=== PATIENT | male | born 1955 | race American Indian/Alaskan Native ===

== ENCOUNTER 2018-07-31 11:25 | Emergency (ER) | payer MEDICAID, OTHER ==
--- NOTE | 2018-07-31 13:21 | XRay Report ---
LEFT SHOULDER: Pain. Routine views demonstrate normal bony and soft tissue structures with normal joint alignment of the shoulder. IMPRESSION: Normal study. RIGHT KNEE: Pain The bony architecture is intact without evidence of fracture or dislocation. No significant soft tissue abnormality is seen. IMPRESSION: Normal right knee.
--- NOTE | 2018-07-31 14:30 | Emergency Department Report ---
<YENNY STOVER - Last Filed: 07/31/18 20:17> ED Fall HPI - General Chief Complaint: Fall Stated Complaint: (R) KNEE/(L) ARM PAIN Time Seen by Provider: 07/31/18 14:18 - Related Data Previous Rx's Medication Instructions Recorded Last Taken Type traMADol [Ultram 50 MG tab] 50 mg PO Q8H PRN #12 tablet 07/31/18 Unknown Rx Allergies Allergy/AdvReac Type Severity Reaction Status Date / Time No Known Allergies Allergy Verified 07/31/18 11:43 ED Past Medical Hx - Medications Home Medications: Home Medications Medication Instructions Recorded Confirmed Last Taken Type traMADol [Ultram 50 MG tab] 50 mg PO Q8H PRN #12 tablet 07/31/18 Unknown Rx ED Medical Decision Making - Medical Decision Making Reevaluation of vitals blood pressure 141/83. Blood pressure trending down after treatment. Patient is stable and will be discharged home. He will continue current medication and follow up with primary care provider. ED Disposition Clinical Impression: Elevated systolic blood pressure reading with diagnosis of hypertension, Arthralgia of multiple sites, Non compliance w medication regimen Fall from ladder Qualifiers: Encounter type: initial encounter Qualified Code(s): W11.XXXA - Fall on and from ladder, initial encounter Disposition: DC-01 TO HOME OR SELFCARE Is pt being admited?: No Condition: Stable Instructions: Fall Prevention for Older Adults (ED), Hypertension (ED), Arthralgia (ED), Knee Exercises (GEN), RICE Therapy (ED) Additional Instructions: Please take medication as prescribed. Please do not drive or operate heavy machinery or take an Ultram as this medication can cause drowsiness. Please remember to take your blood pressure medications to include your amlodipine and water pill when you go home. These follow-up at [facility] or [facility] [place] for primary care physician management of chronic hypertension. Keep a log of your blood pressure after you make appointment and take your blood pressure daily and record to bring to primary care visit with you. Chronic high blood pressure can lead to stroke, heart attack, kidney failure on dialysis and kidney lead to . With this in mind it is very important that you take your blood pressure medication that he said you have on urine night stand at home. If you continue to have knee pain and shoulder pain, please follow up with orthopedic doctor Prescriptions: traMADol [Ultram 50 MG tab] 50 mg PO Q8H PRN #12 tablet PRN Reason: Pain Referrals: PRIMARY CARE, [Primary Care Provider] - 08/03/18 [facility] [Outside] - 08/03/18 [facility] [Outside] - 08/03/18 JHONATAN KRAMER MD [Staff Physician] - 08/03/18 Forms: Work/School Release Form(ED) Time of Disposition: 20:19 <SHARYN PICKERING A - Last Filed: 08/02/18 11:41> ED Fall HPI - General Source: patient, family Mode of arrival: Wheelchair - History of Present Illness Initial Comments: This 62-year-old male here report that he was working on his two-story house and he fell off the ladder approximately 7.6 feet. He said that the ladder was 4 feet tall and he is 5 feet 6 inches. So that would make it 9.6. He reports pain rated a 10 to left shoulder and right knee. Denies any head injury, headache or loss of consciousness. He said when he fell he landed on his right knee and use his left shoulder to brace himself. Denies falling on his buttocks and landed on his feet. No medication taken prior to coming to the emergency room. Patient also with elevated blood pressure and denies any symptoms. Blood pressure is 172/108 and he said he usually takes Norvasc and water pill but he has not taken it for a while. Pain is worse with movement and better with rest. He states that his blood pressure is always elevated daily MD Complaint: fall -: This morning Fall From: from height (distance) (9.6 feet off ladder) When Fall Occurred: 1-3 hours [employer] Fall Witnessed: yes, by bystander Place Fall Occurred: other (outdoors) Loss of Consciousness: none Prolonged Down Time?: no Symptoms Prior to Fall: none Location - Extremities: Left: Shoulder (left shoulder), Right: Knee (right knee in) Severity: severe Severity scale (0 -10): 8 Quality: aching Context: tripped/slipped Associated Symptoms: denies: headache, neck pain, numbness, weakness, chest paint, shortness of breath, abdominal pain, hematuria, unable to walk, lightheaded, vertigo, confusion ED Review of Systems ROS: Stated complaint: (R) KNEE/(L) ARM PAIN Other details as noted in HPI Constitutional: denies: chills, fever Eyes: denies: eye discharge ENT: denies: throat pain, congestion Respiratory: denies: cough, shortness of breath, wheezing Cardiovascular: denies: chest pain, palpitations, dyspnea on exertion, edema, syncope, paroxysmal nocturnal dyspnea Gastrointestinal: denies: abdominal pain, nausea, vomiting, hematemesis, hematochezia Musculoskeletal: arthralgia. denies: back pain, joint swelling, myalgia Skin: denies: rash Neurological: denies: headache, numbness, paresthesias, confusion, abnormal gait, vertigo ED Past Medical Hx - Past Medical History Previous Medical History?: Yes Hx Hypertension: Yes - Surgical History Past Surgical History?: No - Family History Family history: hypertension - Social History Smoking Status: Current Every Day Smoker Substance Use Type: Alcohol ED Physical Exam - General Limitations: No Limitations General appearance: alert, in no apparent distress - Head Head exam: Present: atraumatic, normocephalic, normal inspection, other (normal exam) - Eye Eye exam: Present: normal appearance, PERRL, EOMI. Absent: nystagmus, periorbital swelling, periorbital tenderness Pupils: Present: normal accommodation - ENT ENT exam: Present: normal exam, normal orophraynx, mucous membranes moist, TM's normal bilaterally, normal external ear exam - Neck Neck exam: Present: normal inspection, full ROM, other (no C-spine tenderness). Absent: tenderness, lymphadenopathy - Expanded Neck Exam Expanded Neck exam: Absent: tenderness, midline deformity, anterior neck swelling, tracheal deviation - Respiratory Respiratory exam: Present: normal lung sounds bilaterally. Absent: respiratory distress, chest wall tenderness - Cardiovascular Cardiovascular Exam: Present: regular rate, normal rhythm, normal heart sounds. Absent: systolic murmur, diastolic murmur - GI/Abdominal GI/Abdominal exam: Present: soft. Absent: distended, tenderness, guarding, rebound, rigid, normal bowel sounds, organomegaly, mass, bruit, pulsatile mass, hernia - Extremities Exam Extremities exam: Present: normal inspection, full ROM (full range of motion to all extremities but patient reports pain to left shoulder and right knee with), tenderness (left shoulder and right knee), normal capillary refill, other (No cce. + 2 pulses in all extremities, no neurovascular compromise except right knee and left shoulder with tenderness to palpate. No joint effusion, crepitus, swelling, abrasion or laceration. No bruising noted. No bony deformity. Patient able to flex and extend his right knee with minimal pain.). Absent: pedal edema, joint swelling, calf tenderness - Back Exam Back exam: Present: normal inspection, full ROM, other (ambulates without any difficulties). Absent: tenderness, CVA tenderness (R), CVA tenderness (L), muscle spasm, paraspinal tenderness, vertebral tenderness, rash noted - Neurological Exam Neurological exam: Present: alert, normal gait, reflexes normal, other (no focal neurological deficit). Absent: motor sensory deficit - Psychiatric Psychiatric exam: Present: normal affect, normal mood - Skin Skin exam: Present: warm, dry, intact, normal color. Absent: rash ED Course Vital Signs 07/31/18 07/31/18 07/31/18 11:30 17:55 19:27 Temperature 98 F Pulse Rate 93 H 87 94 H Respiratory 18 18 Rate Blood Pressure 172/108 201/127 Blood Pressure 205/135 [Left] O2 Sat by Pulse 100 Oximetry 07/31/18 20:11 Temperature Pulse Rate 88 Respiratory 16 Rate Blood Pressure Blood Pressure 141/83 [Left] O2 Sat by Pulse 96 Oximetry - Reevaluation(s) Reevaluation #1: 07/31/18 18:31 Patient given tramadol 50 mg. in emergency room which relieved his pain. Patient blood pressure rechecked in his stool at 2/135 therefore clonidine 0.2 mg given and will recheck blood pressure. He is noncompliant with his blood pressure medication. He states that he has them at home which is amlodipine and water pill but he does not take it. Patient is asymptomatic with elevated blood pressure. Reevaluation #2: 07/31/18 19:12 Patient blood pressure still elevated systolic greater than 200 and diastolic greater than 110. Patient given labetalol 10 mg IV and we will reevaluate. Patient agrees that he will stay ED Medical Decision Making - Radiology Data Radiology results: report reviewed X-ray right knee and x-ray right shoulder x-ray by radiologist report reviewed by myself. See details below Findings [facility] [address] [place] [address] XRay Report Signed Patient: CASANDRA POLLACK MR#: [id number] : 1955 Acct:[id number] Age/Sex: 62 / M ADM Date: 07/31/18 Loc: ED Attending Dr: Ordering Physician: DOC KATZ MD Date of Service: 07/31/18 Procedure(s): XR shoulder 2+V LT Accession Number(s): [id number] cc: DOC KATZ MD Fluoro Time In Minutes: LEFT SHOULDER: Pain. Routine views demonstrate normal bony and soft tissue structures with normal joint alignment of the shoulder. IMPRESSION: Normal study. RIGHT KNEE: Pain The bony architecture is intact without evidence of fracture or dislocation. No significant soft tissue abnormality is seen. IMPRESSION: Normal right knee. Transcribed By: Boy Dictated By: JHONATAN TORRES MD Electronically Authenticated By: JHONATAN TORRES MD Signed Date/Time: 07/31/18 1301 DD/ 1300 TD/TT: 07/31/18 [address] [place] [address] XRay Report Signed Patient: CASANDRA POLLACK MR#: [id number] : 1955 Acct:[id number] Age/Sex: 62 / M ADM Date: 07/31/18 Loc: ED Attending Dr: Ordering Physician: DOC KATZ MD Date of Service: 07/31/18 Procedure(s): XR knee 3V RT Accession Number(s): [id number] cc: DOC KATZ MD Fluoro Time In Minutes: LEFT SHOULDER: Pain. Routine views demonstrate normal bony and soft tissue structures with normal joint alignment of the shoulder. IMPRESSION: Normal study. RIGHT KNEE: Pain The bony architecture is intact without evidence of fracture or dislocation. No significant soft tissue abnormality is seen. IMPRESSION: Normal right knee. Transcribed By: Boy Dictated By: JHONATAN TORRES MD Electronically Authenticated By: JHONATAN TORRES MD Signed Date/Time: 07/31/18 1301 DD/ 1300 TD/TT: 07/31/18 1301 - Medical Decision Making This is a 62-year-old male here report that he fell off a ladder and is due to be checked. Patient's blood pressure is elevated and he says he takes blood pressure medication but he has not taken it for a while although he has them at home. Blood pressure read done and a total of 135 and patient remains asymptomatic. He was given clonidine 0.2 mg by mouth and rechecked 45 minutes later and still elevated. Patient placed on monitor and given labetalol 10 mg IV and we will reevaluate. Patient's x-ray of right knee and left shoulder reveals no acute findings. He was given Ultram 50 mg when necessary emergency room which relieved this pain. He is not having any chest pain or shortness of breath. Patient encouraged to take his Norvasc and water pill when he goes home and to take it daily as not taking his medication can cause chronic blood pressure they can cause stroke, heart attack, kidney disease and dialysis and . Patient responded his blood pressure is always high. I encouraged him to also stop smoking and he voiced understanding. Patient has been monitored and patient given labetalol 10 mg IV for elevated blood pressure to rechecked in 30 minutes. Patient is stable at present. He is asymptomatic with elevated blood pressure. I signed off to an LAST GREASERAgus Tejada - Differential Diagnosis FX versus dislocation versus contusion, strain, MSK pain Critical care attestation.: If time is entered above; I have spent that time in minutes in the direct care of this critically ill patient, excluding procedure time. ED Disposition Is pt being admited?: No Does the pt Need Aspirin: No
[2018-07-31] MEDS ORDERED: ULTRAM PO ONE (14:31)
[2018-07-31] MEDS ORDERED: CATAPRES PO ONE (17:55)
[2018-07-31] MEDS ORDERED: CATAPRES ONE (18:24)
[2018-07-31] MEDS ORDERED: NORMODYNE IV ONE (19:11)
[2018-07-31 20:12] VITALS: BP 141/83
== END 2018-07-31 20:28 | disposition home or self-care (01) ==
LOC: ED 11:25
DX: M25.561 Pain in right knee (principal); M79.602 Pain in left arm; I10 Essential (primary) hypertension; F17.200 Nicotine dependence, unspecified, uncomplicated; Z91.14 Patient's other noncompliance with medication regimen; W11.XXXA Fall on and from ladder, initial encounter; Y93.89 Activity, other specified; Y92.89 Other specified places as the place of occurrence of the external cause; Y99.8 Other external cause status
CPT/HCPCS: 96374